=== PATIENT | male | born 1950 | race Hispanic/Latino ===

== ENCOUNTER 2019-09-21 05:42 | Day surgery (SDC) | payer OTHER ==
[2019-09-18 14:20] LABS: BASOPHILS % (AUTO) 0.7 % (0.0-5.0); EOSINOPHILS % (AUTO) 2.1 % (0.0-8.0); HEMATOCRIT 40.8 % (42-54); LYMPHOCYTES % (AUTO) 32.5 % (21.0-51.0); MEAN CORPUSCULAR HEMOGLOBIN 30.3 pg (27.0-33.0); MEAN CORPUSCULAR HGB CONC 33.1 g/dL (32.0-36.0); MEAN CORPUSCULAR VOLUME 91.5 fL (79-99); MONOCYTES % (AUTO) 11.7 % (3.0-13.0); NEUTROPHILS % (AUTO) 52.5 % (40.0-77.0); PLATELET COUNT (AUTO) 159 K/uL (130-400); RED BLOOD CELL COUNT(AUTO) 4.46 MIL/uL (4.50-6.20); RED CELL DISTRIBUTION WIDTH 13.2 % (11.0-15.5); WHITE BLOOD COUNT (AUTO) 6.2 K/uL (4.8-10.8)
[2019-09-18 14:33] LABS: CREATININE 1.6 mg/dL (0.5-1.5); POTASSIUM 4.3 mmol/L (3.5-5.1)
[2019-09-18 14:34] LABS: INR 1.12 (0.85-1.15); PARTIAL THROMBOPLASTIN TIME 26.8 SEC (26.3-35.5)
[2019-09-18 14:48] LABS: APPEARANCE,URINE Clear (CLEAR); BILIRUBIN,URINE Negative (NEGATIVE); COLOR,URINE Yellow (YELLOW); GLUCOSE, URINE (UA) >=1000 mg/dL (NEGATIVE); KETONES,URINE Negative (NEGATIVE); LEUKOCYTE ESTERASE ,URINE Negative (NEGATIVE); NITRATE,URINE Negative (NEGATIVE); OCCULT BLOOD,URINE Negative (NEGATIVE); PH,URINE 5.5 (5.0-8.0); PROTEIN,URINE Trace mg/dL (NEGATIVE)
[2019-09-18 15:20] LABS: BACTERIA,URINE Few /HPF (None Seen); MUCUS,URINE Few LPF (None Seen); SQUAMOUS EPITHELIAL CELL,UR Few /HPF (0-2)
--- NOTE | 2019-09-18 15:52 | NUR ---
LABS FAXED AND REPORTED ABNORMAL LABS TO RONEN DURBIN AT [facility] [facility]. SHE WILL INFORM HIM AND CALL ME BACK.
--- NOTE | 2019-09-18 16:57 | NUR ---
LABS NO ORDERS RECEIVED IN REGARDS TO [facility]. PROCEED WITH PLANNED PROCEDURE.
[2019-09-18 17:03] VITALS: BP 140/76
[2019-09-21] VITALS (10 sets, daily range): BP systolic 107–148; BP diastolic 68–86
[~2019-09-21] VITALS: Ht 165.1 cm; Wt 86.0 kg
[~2019-09-21 05:42] MED LIST: AEC81 PO; AMLO2.5T4 PO; CARV6.25 PO; CLOP75TA32 PO; DULO30CA52 PO; FAMO20TA8 PO; GABA-531 PO; HYDR12.54 PO; ICOS1CAP PO; INSLAN SQ; LEVO50TA11 PO; LINA5TAB PO; MECL-160 PO; METF-446 PO; PANT40TA55 PO; ROSU20TA23 PO; SODIUM CHLORIDE 0.9% 500ML 500 ML IV SCH; VITAD50000 PO
[2019-09-21] MEDS ORDERED: SODIUM CHLORIDE 0.9% 1000ML 1,000 ML IV ONE (07:20)
[2019-09-21] MEDS ORDERED: SODIUM BICARB 50MEQ 50ML VIAL ONE (07:30)
[2019-09-21] MEDS ORDERED: IOHEXOL 350 MG/ML 100ML INFUS..BTL IV ONE (07:30)
[2019-09-21] MEDS ORDERED: IOHEXOL-350 50ML VIAL IV ONE (07:30)
[2019-09-21] MEDS ORDERED: HEPARIN SODIUM 1000UNIT/ML 10ML VIAL ONE (07:30)
[2019-09-21] MEDS ORDERED: LIDOCAINE HCL 2% 20ML ONE (07:31)
[2019-09-21] MEDS ORDERED: NICARDIPINE HCL 25 MG/10 ML ML IV ONE (07:38)
[2019-09-21] MEDS ORDERED: NITROGLYCERIN 2 MG/VIAL VIAL IV ONE (07:57)
[2019-09-21] MEDS ORDERED: MIDAZOLAM HCL 1 MG/ML 2ML VIAL ONE (08:01)
[2019-09-21] MEDS ORDERED: FENTANYL CITRATE PF 50 MCG/1 ML 2ML VIAL ONE (08:01)
--- NOTE | 2019-09-21 13:28 | NUR ---
PRINTED AND VERBAL DISCHARGE INSTRUCTIONS GIVEN TO PATIENT AND HIS SISTER. VERBALIZE UNDERSTANDING. DR JARRELL ALSO SPOKE TO THEM ABOUT HIS FINDINGS AND RECOMMENDATIONS PRIOR TO DISCHARGE
== END 2019-09-21 13:40 | disposition home or self-care (01) ==
LOC: DAH 05:42
PROVIDERS: ATTEND Internal Medicine Cardiovascular Disease
DX: I25.119 Atherosclerotic heart disease of native coronary artery with unspecified angina pectoris (principal); I25.709 Atherosclerosis of coronary artery bypass graft(s), unspecified, with unspecified angina pectoris; E11.40 Type 2 diabetes mellitus with diabetic neuropathy, unspecified; I10 Essential (primary) hypertension; E78.5 Hyperlipidemia, unspecified; Z79.4 Long term (current) use of insulin; Z79.84 Long term (current) use of oral hypoglycemic drugs; Z79.899 Other long term (current) drug therapy; Z82.49 Family history of ischemic heart disease and other diseases of the circulatory system; Z83.3 Family history of diabetes mellitus; Z98.890 Other specified postprocedural states
CPT/HCPCS: 36415; 71045; 80048; 81001; 82948 ×2; 85025; 85610; 85730; 93005; 93455; A4215; A4216; A4221; A4222; A4223 ×3; A4606; A4663; C1769; C1894 ×2; J1644 ×2; J2250; J3010; J3490 ×4; J7030; Q9965 ×2; Q9967; 99156; 99157